=== PATIENT | female | born 1980 | race Two or more races ===

== ENCOUNTER → 2020-12-28 15:00 | Outpatient (CLI) | payer OTHER | END | disposition home or self-care (01) | LOC: PPH VACUNA 15:00 | DX: Z23 Encounter for immunization (principal) ==

== ENCOUNTER 2021-01-18 08:00 | Outpatient (CLI) | payer OTHER | END 2021-01-18 08:30 | disposition home or self-care (01) | LOC: PPH VACUNA 08:00 | DX: Z23 Encounter for immunization (principal) ==

== ENCOUNTER → 2021-03-25 | Outpatient (CLI) | payer OTHER | END | disposition home or self-care (01) | LOC: LAB 11:32 | PROVIDERS: ATTEND Emergency Medicine Pediatric Emergency Medicine | DX: Z03.818 Encounter for observation for suspected exposure to other biological agents ruled out (principal) ==

== ENCOUNTER 2021-10-29 16:44 | Emergency (ER) | payer OTHER ==
[~2021-10-29] VITALS: Ht 157.5 cm; Wt 81.6 kg
[2021-10-29] MEDS ORDERED: DICLOFENAC SODI75 MG PO (17:27)
[2021-10-29] MEDS ORDERED: NORFLEX100MG PO (17:27)
== END 2021-10-29 17:38 | disposition home or self-care (01) ==
LOC: ER 16:44
DX: M62.838 Other muscle spasm (principal); Z91.013 Allergy to seafood; M54.2 Cervicalgia

== ENCOUNTER 2022-05-03 08:00 | Outpatient (CLI) | payer OTHER ==
[~2022-05-03 08:00] MED LIST: DICLOFENAC SODI75 MG PO; NORFLEX100MG PO
== END 2022-05-03 08:05 | disposition home or self-care (01) ==
LOC: PPH VACUNA 08:00
PROVIDERS: ATTEND Emergency Medicine Pediatric Emergency Medicine
DX: Z23 Encounter for immunization (principal)

== ENCOUNTER 2022-12-23 16:17 | Emergency (ER) | payer OTHER ==
[~2022-12-23] VITALS: Ht 157.5 cm; Wt 83.9 kg
== END 2022-12-23 19:57 | disposition home or self-care (01) ==
LOC: ER 16:17
DX: S20.219A Contusion of unspecified front wall of thorax, initial encounter (principal); S40.022A Contusion of left upper arm, initial encounter; S20.224A Contusion of middle back wall of thorax, initial encounter; W18.39XA Other fall on same level, initial encounter; Y93.89 Activity, other specified; Y92.89 Other specified places as the place of occurrence of the external cause; Y99.8 Other external cause status; I10 Essential (primary) hypertension; Z91.013 Allergy to seafood

== ENCOUNTER 2023-05-08 09:15 | Outpatient (CLI) | payer OTHER | END 2023-05-08 09:30 | disposition home or self-care (01) | LOC: PPH VACUNA 09:15 | PROVIDERS: ATTEND Emergency Medicine Pediatric Emergency Medicine | DX: Z23 Encounter for immunization (principal) ==

== ENCOUNTER 2025-06-20 11:05 | Outpatient (CLI) | payer OTHER | END 2025-06-20 11:15 | disposition home or self-care (01) | LOC: PPH VACUNA 11:05 | PROVIDERS: ATTEND Emergency Medicine Pediatric Emergency Medicine | DX: Z23 Encounter for immunization (principal) ==